=== PATIENT | female | born 1995 | race Asian ===

== ENCOUNTER 2016-12-07 16:30 | Emergency (ER) | payer SELFPAY ==
[2016-12-07] MEDS ORDERED: NS 1,000 ML IV ONE (16:57)
[2016-12-07] MEDS ORDERED: fentaNYL 100 MCG/2 ML INJ ONE (17:14)
[2016-12-07] MEDS ORDERED: fentaNYL 100 MCG/2 ML INJ IVP ONE (17:16)
[2016-12-07 17:23] LABS: % IMMATURE GRANULYOCYTES 0.4 % (0.0-1.1); ABSOLUTE IMMATURE GRANULOCYTES 0.03 10^3/uL (0.00-0.10); ADD DIFF? NO; ADD MORPH? NO; ADD SCAN? NO; ATYPICAL LYMPHOCYTE FLAG 20 (0-99); FRAGMENT RBC FLAG 0 (0-99); HEMATOCRIT 41.8 % (38.0-47.0); HEMOGLOBIN 14.8 g/dL (12.6-16.3); LEFT SHIFT FLG 0 (0-99); LIPEMIA HEMOLYSIS FLAG 90 (0-99); MEAN CELL HEMOGLOBIN 29.8 pg (27.9-34.1); MEAN CELL HEMOGLOBIN CONCENTR. 35.4 g/dL (32.4-36.7); MEAN CELL VOLUME 84.3 fL (81.5-99.8); MEAN PLATELET VOLUME 9.9 fL (8.7-11.7); PLATELET CLUMPS FLAG 0 (0-99); PLATELET COUNT 233 10^3/uL (150-400); RED BLOOD CELL COUNT 4.96 10^6/uL (4.18-5.33); RED CELL DISTRIBUTION WIDTH 12.6 % (11.5-15.2)
[2016-12-07 17:42] LABS: ANION GAP 13 mEq/L (8-16); CALCIUM 9.2 mg/dL (8.5-10.4); CARBON DIOXIDE 17 mEq/l (22-31); CHLORIDE 109 mEq/L (97-110); CREATININE 0.5 mg/dL (0.6-1.0); GLOMERULAR FILTRATION RATE > 60; GLUCOSE 87 mg/dL (70-100); POTASSIUM 4.1 mEq/L (3.5-5.2); SODIUM 139 mEq/L (134-144)
--- NOTE | 2016-12-07 18:44 | EDPHY ---
H & P Stated Complaint: Cramping,+;sent from [facility] for eval HPI/ROS: Chief complaint: with vaginal bleeding History of present illness: This is a 21-year-old female, 1, para 0 who believes she is 4-5 weeks who presents to the emergency department for evaluation of vaginal bleeding. [facility] here for evaluation. Patient reports the onset of bleeding last night. She describes bright red blood from the vagina. Occasional clot passage. Associated pelvic cramping. Patient denies other associated signs or symptoms including no fevers, no nausea or vomiting, no diarrhea or constipation, no urinary symptoms as well as no systemic symptoms such as dizziness, lightheadedness or fatigue. Patient has only changed pads 3 times since last night. Review of systems: A 10 point review of systems was obtained and other than described above was negative - Personal History LMP (Females 10-55): Over 28 Days Ago Current Tetanus Diphtheria and Acellular Pertussis (TDAP): Unsure - Medical/Surgical History Other PMH: - Social History Smoking Status: Never smoked - Physical Exam Exam: General Appearance: Alert, nontoxic. Eyes: Pupils equal and round no pallor or injection. ENT, Mouth: Mucous membranes moist. Respiratory: There are no retractions, lungs are clear to auscultation. Cardiovascular: Regular rate and rhythm. Gastrointestinal: Abdomen is soft and nontender, no masses, bowel sounds normal. Neurological: Alert and oriented x4. Strength and sensation intact and symmetrical. Skin: Warm and dry, no rashes. Musculoskeletal: Neck is supple nontender. Extremities are symmetrical, full range of motion. Psychiatric: Patient is oriented X 3, there is no agitation. Constitutional: Initial Vital Signs Temperature (C) 36.7 C 12/07/16 16:38 Heart Rate 72 12/07/16 16:38 Respiratory Rate 18 12/07/16 16:38 Blood Pressure 129/84 H 12/07/16 16:38 O2 Sat (%) 97 12/07/16 16:38 O2 Delivery Mode Room Air Allergies/Adverse Reactions: No Known Allergies Allergy (Unverified 12/07/16 16:42) Home Medications: Medication Instructions Recorded NK [No Known Home Meds] 12/07/16 Medical Decision Making - Diagnostics Imaging Results: Imaging Impressions Obstetrics Ultrasound 12/07/16 16:58 Impression: 1. No intrauterine identified. 2. No adnexal masses or ovarian torsion. 3. Minimal free fluid in the pelvis, nonspecific. 4. Cannot exclude occult ectopic although no evidence of adnexal mass or significant free fluid. Findings and recommendations discussed with Emergency Department physician, BREEZY Rouse, at 1829 hours, on December 07, 2016.. Final report concurs with initial preliminary interpretation. E:GI/amm ED Course/Re-evaluation: Patient is discussed with my secondary supervising physician Dr. Donte Horton. Patient is a 1, para 0 female who believes she is 4-5 weeks who presents for vaginal bleeding with clot passage and pelvic cramping. On presentation she is nontoxic. She is afebrile and vital signs are stable. Blood studies are unremarkable. Ultrasound is negative for any findings at this time. She is B positive, RhoGAM is not indicated. I have discussed with the patient multiple etiologies of her symptoms including possible miscarriage. She is hemodynamically stable, I believe she is safe for discharge home. She will be discharged with referral to OBGYN. She has been instructed that she needs to have a repeat beta HCG in 48 hours. Strict return precautions are given. Patient voiced understanding and agreement with plan. Differential Diagnosis: Included but not limited to spotting in the setting , miscarriage, threatened miscarriage, ectopic - Data Points Laboratory Results: Laboratory Results 12/07/16 17:00 12/07/16 17:00 12/07/16 12/07/16 12/07/16 17:00 17:00 17:00 WBC 7.56 10^3/uL 10^3/uL (3.80-9.50) RBC 4.96 10^6/uL 10^6/uL (4.18-5.33) Hgb 14.8 g/dL g/dL (12.6-16.3) Hct 41.8 % % (38.0-47.0) MCV 84.3 fL fL (81.5-99.8) MCH 29.8 pg pg (27.9-34.1) MCHC 35.4 g/dL g/dL (32.4-36.7) RDW 12.6 % % (11.5-15.2) Plt Count 233 10^3/uL 10^3/uL (150-400) MPV 9.9 fL fL (8.7-11.7) Neut % (Auto) 54.0 % % (39.3-74.2) Lymph % (Auto) 37.0 % % (15.0-45.0) Peach % (Auto) 7.3 % % (4.5-13.0) Eos % (Auto) 0.8 % % (0.6-7.6) Baso % (Auto) 0.5 % % (0.3-1.7) Nucleat RBC Rel Count 0.0 % % (0.0-0.2) Absolute Neuts (auto) 4.08 10^3/uL 10^3/uL (1.70-6.50) Absolute Lymphs (auto) 2.80 10^3/uL 10^3/uL (1.00-3.00) Absolute Monos (auto) 0.55 10^3/uL 10^3/uL (0.30-0.80) Absolute Eos (auto) 0.06 10^3/uL 10^3/uL (0.03-0.40) Absolute Basos (auto) 0.04 10^3/uL 10^3/uL (0.02-0.10) Absolute Nucleated RBC 0.00 10^3/uL 10^3/uL (0-0.01) Immature Gran % 0.4 % % (0.0-1.1) Immature Gran # 0.03 10^3/uL 10^3/uL (0.00-0.10) Sodium 139 mEq/L mEq/L (134-144) Potassium 4.1 mEq/L mEq/L (3.5-5.2) Chloride 109 mEq/L mEq/L (97-110) Carbon Dioxide 17 mEq/l L mEq/l (22-31) Anion Gap 13 mEq/L mEq/L (8-16) BUN 10 mg/dL mg/dL (7-23) Creatinine 0.5 mg/dL L mg/dL (0.6-1.0) Estimated GFR > 60 Glucose 87 mg/dL mg/dL (70-100) Calcium 9.2 mg/dL mg/dL (8.5-10.4) Beta HCG, Quant 174.21 mIU/mL H mIU/mL (0-4.83) Patient ABO/Rh B POSITIVE Medications Given: Discontinued Medications Fentanyl (Sublimaze) 100 mcg IVP EDNOW ONE Stop: 12/07/16 17:17 Last Admin: 12/07/16 17:17 Dose: 100 mcg Sodium Chloride (Ns) 1,000 mls @ 0 mls/hr IV ONCE ONE; Wide Open PRN Reason: Protocol Stop: 12/07/16 16:58 Last Admin: 12/07/16 17:17 Dose: 1,000 mls Departure - Departure Disposition: Home, Routine, Self-Care Clinical Impression: Threatened Condition: Good Instructions: Threatened Miscarriage (ED) Additional Instructions: Follow-up with an OBGYN for recheck You need a repeat beta HCG in 2 days, your HCG today was 174.21 If symptoms worsen or new symptoms develop return to the emergency room for recheck Referrals: NONE *PRIMARY CARE P,. [Primary Care Provider] - As per Instructions Minh Soriano MD [Unknown] - As per Instructions
[2016-12-07 19:06] VITALS: BP 100/63; PULSE 77; RESP 14; TEMP 98.2; O2SAT 98
== END 2016-12-07 19:06 | disposition home or self-care (01) ==
DX: O20.0 Threatened abortion (principal); Z3A.01 Less than 8 weeks gestation of pregnancy
CPT/HCPCS: 96374; J3010